=== PATIENT | female | born 1955 | race Caucasian/White ===

== ENCOUNTER 2021-12-12 18:44 | Emergency (ER) | payer BC ==
[2021-12-12 19:11] VITALS: BP 141/74; PULSE 70; RESP 16; TEMP 98.4; BMI 35.5
[2021-12-12] MEDS ORDERED: MECLIZINE HCL 25 MG TABLET (FP) PO ONE (19:17)
[2021-12-12] MEDS ORDERED: ACETAMINOPHEN 500 MG TABLET (FP) PO ONE (19:18)
[2021-12-12] MEDS ORDERED: MECLIZINE HCL 25 MG TABLET (FP) ONE (19:20)
[2021-12-12] MEDS ORDERED: ACETAMINOPHEN 500 MG TABLET (FP) ONE (19:20)
== END 2021-12-12 20:57 | disposition home or self-care (01) ==
LOC: FER 18:44
DX: R42 Dizziness and giddiness (principal)
CPT/HCPCS: 70450-TC; 93005; 99284-25

== ENCOUNTER 2023-09-01 13:39 | Emergency (ER) | payer BC, MEDICARE ==
[2023-09-01 13:58] VITALS: BP 125/77; PULSE 88; RESP 16; TEMP 97.8; BMI 33.4
[2023-09-01] MEDS ORDERED: ONDANSETRON *ODT* 4 MG TABLET ONE (14:03)
[2023-09-01] MEDS: ONDANSETRON *ODT* 4 MG TABLET SL ONE (14:04)
[2023-09-01] MEDS ORDERED: CEFUROXIME AXETIL 500 MG TABLET ONE (14:55)
[2023-09-01] MEDS: CEFUROXIME AXETIL 500 MG TABLET PO ONE (15:05)
[2023-09-01] MEDS ORDERED: ACETAMINOPHEN 325 MG TABLET (FP) ONE (16:08)
== END 2023-09-01 16:23 | disposition home or self-care (01) ==
LOC: FER 13:39
DX: N39.0 Urinary tract infection, site not specified (principal); R10.32 Left lower quadrant pain; R35.0 Frequency of micturition; R39.11 Hesitancy of micturition; R11.0 Nausea
CPT/HCPCS: 74018-TC-FY; 81003; 81015; 87086; 87186; 99284-25; Q0162